=== PATIENT | female | born 1995 | race Caucasian/White ===

== ENCOUNTER 2022-07-30 15:55 | Outpatient (CLI) | payer OTHER, SELFPAY ==
[2022-07-30 18:12] LABS: Cholesterol* 126 mg/dL (90-199)
[2022-07-30 18:13] LABS: Glucose* 94 mg/dL (60-115); HDL Cholesterol* 64 mg/dL (>=50); LDL Cholesterol Calculated 47 mg/dL (<100); Triglycerides* 77 mg/dL (40-149)
== END 2022-07-30 15:56 | disposition home or self-care (01) ==
PROVIDERS: Visit Provider Registered Nurse
DX: Z13.6 Encounter for screening for cardiovascular disorders (principal); Z13.1 Encounter for screening for diabetes mellitus
CPT/HCPCS: 80061; 82947

== ENCOUNTER 2022-09-17 12:34 | Outpatient (CLI) | payer OTHER, SELFPAY ==
--- NOTE | 2022-09-17 13:00 | CRLHL7_ITS ---
For Patients: As a result of the Cures Act, medical imaging exams and procedure reports are released immediately into your electronic medical record. You may view this report before your referring provider. If you have questions, please contact your health care provider. INDICATION: First trimester scan, establish dates. COMPARISON: None. TECHNIQUE: Real-time short-scale imaging of the pelvis was performed. FINDINGS: Sonographic imaging demonstrates a single living intrauterine gestation. The embryo demonstrates a regular cardiac rate measuring 169 beats per minute. The embryo`s crown-rump length measurement of 1.8 cm corresponds to a gestational age of 8 weeks 2 days with a sonographic due date of 04/27/2023. There is a normal-appearing yolk sac. There are no gross abnormalities noted within the embryo at this early state of development. The gestational sac has a normal appearance. There is a 1.6 x 0.6 x 0.5 cm perigestational hemorrhage. The amount of fluid within the sac appears appropriate for gestational age. The cervix is closed. The myometrium appears normal. The ovaries are of normal size. Corpus luteal cyst right ovary. There are no suspicious fluid collections noted in the cul-de-sac. IMPRESSION: Single living intrauterine with sonographic gestational age 8 weeks 2 days and sonographic due date of 04/27/2023. Left superior subchorionic hemorrhage measuring 1.6 x 0.6 x 0.5 cm. Dictated by Iam Peraza MD @ 09/20/2022 11:45:32 AM (Electronically Signed)
== END 2022-09-17 12:35 | disposition home or self-care (01) ==
LOC: US 12:37
PROVIDERS: Visit Provider Registered Nurse
DX: Z34.91 Encounter for supervision of normal pregnancy, unspecified, first trimester (principal); O20.9 Hemorrhage in early pregnancy, unspecified; Z3A.08 8 weeks gestation of pregnancy
CPT/HCPCS: 0353U; 76817; 86592; 86703; 86762; 86787; 86803; 86850; 86900; 86901; 87086; 87340; 87491; 87591

== ENCOUNTER 2022-09-24 13:40 | Outpatient (CLI) | payer OTHER, SELFPAY | END 2022-09-24 13:41 | disposition home or self-care (01) | PROVIDERS: PCP Registered Nurse; Referring Provider Registered Nurse; Visit Provider Registered Nurse | DX: R76.8 Other specified abnormal immunological findings in serum (principal); Z34.90 Encounter for supervision of normal pregnancy, unspecified, unspecified trimester | CPT/HCPCS: 87522 ==

== ENCOUNTER 2022-11-26 14:04 | Outpatient (CLI) | payer OTHER, SELFPAY ==
--- NOTE | 2022-11-26 14:00 | CRLHL7_ITS ---
For Patients: As a result of the Century Cures Act, medical imaging exams and procedure reports are released immediately into your electronic medical record. You may view this report before your referring provider. If you have questions, please contact your health care provider. INDICATION: Leaking fluid, premature rupture of membranes. TECHNIQUE: Ultrasound OB pelvis transabdominal, limited. COMPARISON: Obstetric ultrasound dated 09/18/2019 FINDINGS/IMPRESSION: Limited study evaluating the cervix and amniotic fluid. The cervix appears long and closed, measuring 4.3 cm in length. No significant endocervical fluid is identified. Single deepest pocket of amniotic fluid is measured at 6.0 cm, within normal limits. Fetus is in vertex positioning. Regular heart rate of 150 beats per minute. Placenta is located posteriorly. Dictated by Indu Skelton MD @ 11/26/2022 4:27:20 PM (Electronically Signed)
== END 2022-11-26 14:05 | disposition home or self-care (01) ==
LOC: US 14:04
PROVIDERS: PCP Registered Nurse; Visit Provider Obstetrics & Gynecology
DX: O42.919 Preterm premature rupture of membranes, unspecified as to length of time between rupture and onset of labor, unspecified trimester (principal)
CPT/HCPCS: 76815

== ENCOUNTER 2022-12-10 12:54 | Outpatient (CLI) | payer OTHER, SELFPAY ==
--- NOTE | 2022-12-10 13:00 | CRLHL7_ITS ---
For Patients: As a result of the Century Cures Act, medical imaging exams and procedure reports are released immediately into your electronic medical record. You may view this report before your referring provider. If you have questions, please contact your health care provider. INDICATION: Evaluate anatomy. COMPARISON: none TECHNIQUE: Real time short scale imaging of the fetus was performed as well as color Doppler analysis of the umbilical vessels. FINDINGS: Sonographic imaging demonstrates a single living intrauterine gestation. Fetus demonstrates a regular cardiac rate of 150 beats per minute. Fetus has a variable position. The placenta lies fundal posterior without evidence of placenta previa. The edge of the placenta is located 6.4 cm from the internal cervical os. Amniotic fluid volume appears normal. Single deepest vertical pocket: 3.8 cm. The cervix is closed and measures 3.9 cm in length. The composite ultrasound gestational age is calculated at 20 weeks 2 days with an estimated sonographic due date of 04/27/2023. The estimated weight is 368 grams which lies at the 67th %. The following biometric measurements were obtained: Biparietal diameter: 4.7 cm/20 weeks 0 days 40th% Head circumference: 17.5 cm/20 weeks 0 days 29th% Abdominal circumference: 15.8 cm/20 weeks 6 days 65th% Femur length: 3.4 cm/20 weeks 4 days 52nd% The HC/AC ratio measures: 1.11 range (1.07-1.25) On anatomic survey, there is a normal appearance of the cavum septi pellucidi, cisterna magna and cerebellum. 5 x 3 millimeter choroid plexus cyst. The nose, lips, and facial profile appear normal. The cervical, thoracic and lumbar spine are well visualized and appear normal. There is a normal four-chamber heart view and the left and right ventricular outflow tracts appear normal. The diaphragm and stomach appear normal. The kidneys and bladder also appear normal. There is a normal three-vessel cord and cord insertion site. The four extremities appear normal. IMPRESSION: Concordance of clinical and sonographic dating. 5 x 3 millimeter choroid plexus cyst. Remainder of the anatomic survey normal. Level 2 ultrasound suggested. Dictated by Iam Peraza MD @ 12/10/2022 4:53:57 PM (Electronically Signed)
== END 2022-12-10 12:55 | disposition home or self-care (01) ==
LOC: US 12:55
PROVIDERS: PCP Registered Nurse; Visit Provider Obstetrics & Gynecology
DX: Z34.92 Encounter for supervision of normal pregnancy, unspecified, second trimester (principal); Z3A.20 20 weeks gestation of pregnancy
CPT/HCPCS: 76805; 76817

== ENCOUNTER 2023-02-04 09:55 | Outpatient (CLI) | payer OTHER, SELFPAY | END 2023-02-04 09:56 | disposition home or self-care (01) | LOC: NFLDREF 09:57 | PROVIDERS: Visit Provider Physician Assistant | DX: O26.893 Other specified pregnancy related conditions, third trimester (principal); Z67.91 Unspecified blood type, Rh negative; Z3A.28 28 weeks gestation of pregnancy | CPT/HCPCS: 86592; 86850; 86870; 86880; 86900; 86901; J2791 ==

== ENCOUNTER 2023-02-08 08:15 | Outpatient (CLI) | payer OTHER, SELFPAY | END 2023-02-08 08:16 | disposition home or self-care (01) | LOC: NFLDREF 02-11 06:05 | PROVIDERS: PCP Physician Assistant; Referring Provider Physician Assistant; Visit Provider Physician Assistant | DX: Z34.90 Encounter for supervision of normal pregnancy, unspecified, unspecified trimester (principal) | CPT/HCPCS: 82951; 82952 ==

== ENCOUNTER 2023-03-18 09:32 | Outpatient (CLI) | payer OTHER, SELFPAY | END 2023-03-18 09:33 | disposition home or self-care (01) | PROVIDERS: Visit Provider Obstetrics & Gynecology | DX: Z34.90 Encounter for supervision of normal pregnancy, unspecified, unspecified trimester (principal) | CPT/HCPCS: 86592; 86703; 87340; 87491; 87591 ==

== ENCOUNTER 2023-04-01 09:52 | Outpatient (CLI) | payer OTHER, SELFPAY | END 2023-04-01 09:53 | disposition home or self-care (01) | LOC: NFLDREF 04-06 06:23 | PROVIDERS: Visit Provider Advanced Practice Midwife | DX: Z34.93 Encounter for supervision of normal pregnancy, unspecified, third trimester (principal) | CPT/HCPCS: 87081; 87653 ==

== ENCOUNTER 2023-04-19 16:15 | Inpatient (IN) | payer OTHER, SELFPAY ==
[2023-04-19 16:29] VITALS: BMI 26.9
[2023-04-19 16:47] VITALS: BP 132/78; PULSE 82; RESP 16; TEMP 37.2
--- NOTE | 2023-04-19 18:21 | P.OBO_ITS ---
OB Outpatient HPI History of Present Illness History of Present Illness: 27 year old at 38 weeks, 6 days gestation presents for cervical ripening in anticipation of elective induction of labor tomorrow. Upon presentation, she was noted to be kervin irregularly. She is able to feel these contractions , but they are not strong. Meds Home Medications and Allergies Home Medications Medication Instructions Recorded Confirmed Type loratadine 10 mg tablet (Claritin) 10 mg PO QDAY 07/30/22 04/15/23 History diphenhydramine HCl 25 mg capsule 25 mg PO TID PRN 09/17/22 04/15/23 History (Unisom SleepMinis) docosahexaenoic acid 200 mg mg PO 09/17/22 04/15/23 History capsule ( DHA) Allergies Allergy/AdvReac Type Severity Reaction Status Date / Time cat dander Allergy Verified 04/19/23 18:11 [facility] Surgical History History of tonsillectomy ?Z90.89 - Acquired absence of other organs (ICD-10) [place] teeth extracted ?K08.409 - Partial loss of teeth, unspecified cause, unspecified class (ICD- 10) History of ankle surgery ?Z98.890 - Other specified postprocedural states (ICD-10) Family History Family/Other Thyroid cancer Brain cancer Father High blood pressure Social History What is your current living situation?: I presently have a place to live Problems where you live: no known problems In the past 12 months, utilities in danger of being shut off: no In past 12 months, lack of transportation kept you from medical appts, meetings, work, or getting things needed for daily living: no In the past 12 mos, have been you worried that your food would run out before you had money to buy more?: never true In the past 12 mos, the food you bought just didn't last and you didn't have money to buy more?: never true Smoking Status: Never smoker How often does anyone, including family, friends and others, physically hurt you : never How often does anyone, including family, friends and others, insult or talk down to you: never How often does anyone, including family, friends and others, threaten you with harm: never How often does anyone, including family, friends and others, scream or curse at you: never Little interest or pleasure in doing things: several days Feeling down, depressed, or hopeless: several days History History 2 Elective abortions Para 1 Spontaneous abortions Hx # Term Pregnancies 1 Ectopic pregnancies Hx # Pregnancies Multiple births Number of Living Children 1 Past Pregnancies Del. Date GA/Weeks Outcome Route wt Inf Gender Labor Lgth Anesthesia Location Provider Compli 02/09/21 39 live - full term 6 lb 11 oz Female 15 hrs e pidural [facility] other Delivery Date: 02/09/21 Last Updated by: Elle Cantu ~ [employer], [employer] Short umbilical cord OB - H&P: Exam Physical Exam Vital signs: Temp Pulse Resp BP 98.9 F 82 16 132/78 04/19/23 16:47 04/19/23 16:47 04/19/23 16:47 04/19/23 16:47 Narrative: Physical exam: General: No acute distress Psych: Alert and oriented x3, full affect HEENT: Normocephalic, atraumatic Heart: Regular rate and rhythm, no murmur rub or gallop Lungs: Clear to auscultation bilaterally Abdomen: Soft, nontender, gravid Lower extremities: No edema or erythema Pelvic exam: Cervix 3 cm, 75%,-1 station, mid position, soft. Cephalic, with bulging bag of water noted during contractions. Membranes stripped. tracing: Category 1 Assessment and Plan Assessment and plan (1) : Status: Acute Assessment and Plan: Desires elective induction of labor tomorrow. No with favorable cervix. She is to return tomorrow morning at 6:00 a.m. for Pitocin induction of labor.
== END 2023-04-19 18:10 | disposition home or self-care (01) | DRG 833 ==
PROVIDERS: Admitting Provider Obstetrics & Gynecology; Visit Provider Obstetrics & Gynecology
DX: O47.1 False labor at or after 37 completed weeks of gestation (principal); Z3A.38 38 weeks gestation of pregnancy

== ENCOUNTER 2023-04-20 06:14 | Inpatient (IN) | payer OTHER, SELFPAY ==
[2023-04-20] VITALS (84 sets, daily range): BP systolic 77–136; BP diastolic 46–73; PULSE 74–117; RESP 16–18; TEMP 36.6–37.2; O2SAT 93–120; BMI 26.9
--- NOTE | 2023-04-20 06:57 | P.OBHP_ITS ---
OB - H&P: HPI Labor/Induction History of Present Illness Time Seen by Provider: 07:10 Date Seen: 04/20/23 Chief Complaint: The patient is a 27 year old 2 para 1 at 39 and 0/7 weeks gestation by 8 week ultrasound, who presents for elective induction of labor. course is complicated by depression, anxiety, stress at home (separation from spouse), elevated 1 hour glucose test with normal 3 hour GTT. Complete history and physical exam completed by Dr. Smalls on 04/08/2023. Rosenda is feeling well today, no acute concerns. Endorses regular contractions every several minutes, rated up to 5/10 in severity. She is status post membrane sweeping yesterday by Dr. Cody, where she has had small volume vaginal bleeding/mucus since. No tyler vaginal bleeding or leaking of fluids. Endorses active movement. Denies chest pain, dyspnea, dizziness/lightheadedness, nausea/vomiting, bowel or bladder concerns. Chief complaint: maternity Narrative: Rosenda Delaney is a 27 year old female Specific Issues/Plans : Samuel (ongoing divorce), mother or sister will be her support in L&D H&P done 04/08/[address] Smalls 1. N+V. Zofran rx 2. Rh negative. Rhogam: A 10/30/2022 * RhoGAM given on 10/15/2022 due to vaginal bleeding in early . 3. + Hep C antibody. HCV RNA: Not detected 4. 5 x 3 millimeter choroid plexus cyst on anatomy scan. * Normal [id number]. * Level II US 12/21/22z; posterior placenta without previa, three-vessel cord, MVP 4.3 cm, EFW 41%, AC 45%, normal anatomy. 5. Depression and anxiety. Stress with . Sertraline started 01/14. Declines counseling. Reevaluate at next visit. 02/04/2003: Improved with the sertraline. She and her have . She and her daughter are living with her parents, parents and family very supportive. Counseling referral placed. - 03/18: Divina reports divorce is ongoing, she suspects infidelity in her marriage though her partner denies this. STI screening requested, completed. Mood stable despite stressors at home. She is living with her parents and daughter, feels safe. [x] f/u STI screening 6. Weight loss of 11lbs in 1 week, noted on 01/14. Patient attributed this to stress and minimal eating for a week. Advised 3 meals/day and check weight in one week. F/u in clinic if still losing weight. Stable weight 02/04/2023 7. 1 hour GTT: 159, 3 hour GTT: all normal Tdap: 02/18/2023 Flu: 04/08/2023 Meds Home Medications and Allergies Home Medications Medication Instructions Recorded Confirmed Type loratadine 10 mg tablet (Claritin) 10 mg PO QDAY 07/30/22 04/20/23 History diphenhydramine HCl 25 mg capsule 25 mg PO TID PRN 09/17/22 04/20/23 History ([employer]om SleepMinis) docosahexaenoic acid 200 mg 200 mg PO 09/17/22 04/15/23 History capsule ( DHA) Allergies Allergy/AdvReac Type Severity Reaction Status Date / Time cat dander Allergy Verified 04/19/23 18:11 OB - H&P: Exam Physical Exam: Vital signs: Temp Pulse BP Pulse Ox 98.8 F 99 116/73 99 04/20/23 06:49 04/20/23 06:49 04/20/23 06:49 04/20/23 06:49 Narrative: Physical exam: General: No acute distress Psych: Alert and oriented x3, full affect Heart: Regular rate and rhythm, no murmur rub or gallop Lungs: Clear to auscultation bilaterally Abdomen: Gravid. Otherwise soft and nontender. heart rate: Reactive NST. Baseline of 130 beats per minute, moderate variability, accelerations present, decelerations absent. Cervix: 3.5cm/75/-1 Presentation: Cephalic by exam OB - Problem Based A/P Additional Plan (1) : Status: Acute (2) Anxiety and depression: Status: Acute (3) Unstable lie of fetus: Problem details: Vertex on 04/08/23 Status: Acute Plan Ms. Delaney is a 27-year-old admitted at 39 weeks gestation for elective atif ction of labor. course is complicated by depression, anxiety, stress at home (ongoing separation from spouse), elevated 1 hour glucose test and history of variable presentation. She presented for cervical ripening yesterday, at which time she was kervin irregularly. Cervix was found to be 3/75/-1, membrane stripping performed and recommended to return this morning. She notes increasingly regular painful contractions since that time and small volume spotting/mucus. No tyler vaginal bleeding or leaking of fluids. Endorses active movement. Cervix is 3.5 cm, 75% effaced and minus once today. Admit to labor and delivery for IOL with pitocin. - Start IOL with pitocin titration pending FHR and toco data - Plan reassessment in about 4 hours for possible AROM. Patient desires epidural, where she may proceed with epidural prior to AROM depending on cervical change/plan at next exam. - Blood type B negative, planned cord blood at time of delivery - GBS negative - History of variable presentation, cephalic on exam today and for the last several weeks - Patient's mother and sister are her support people today - EFW 3000g by Lupe
[2023-04-20] MEDS: LACTATED RINGERS 1000 ML 1,000 ML 999 ML IV (08:58)
[2023-04-20] MEDS: ONDANSETRON 2 MG/ML inj 4 MG IV ×2 (09:03→13:34)
[2023-04-20] MEDS: LACTATED RINGERS 1000 ML 1,000 ML 1200 ML IV (09:32)
[2023-04-20] MEDS: LIDOCAINE 2% (PF) 5 ML VIAL EPIDURAL (09:41)
[2023-04-20] MEDS: ROPIVACAINE 0.2% 100 ml 100 ML 12 MG EPIDURAL (09:42)
--- NOTE | 2023-04-20 10:55 | PM.ANBPRC ---
PFSH PFS Surgical History History of tonsillectomy ?Z90.89 - Acquired absence of other organs (ICD-10) [place] teeth extracted ?K08.409 - Partial loss of teeth, unspecified cause, unspecified class (ICD-10) History of ankle surgery ?Z98.890 - Other specified postprocedural states (ICD-10) Family History Family/Other Thyroid cancer Brain cancer Father High blood pressure Social History What is your current living situation?: I presently have a place to live Problems where you live: no known problems In the past 12 months, utilities in danger of being shut off: no In past 12 months, lack of transportation kept you from medical appts, meetings, work, or getting things needed for daily living: no In the past 12 mos, have been you worried that your food would run out before you had money to buy more?: never true In the past 12 mos, the food you bought just didn't last and you didn't have money to buy more?: never true Smoking Status: Never smoker How often does anyone, including family, friends and others, physically hurt you: never How often does anyone, including family, friends and others, insult or talk down to you: never How often does anyone, including family, friends and others, threaten you with harm: never How often does anyone, including family, friends and others, scream or curse at you: never Little interest or pleasure in doing things: several days Feeling down, depressed, or hopeless: several days Meds Home Medications and Allergies Home Medications Medication Instructions Recorded Confirmed Type loratadine 10 mg tablet (Claritin) 10 mg PO QDAY 07/30/22 04/20/23 History diphenhydramine HCl 25 mg capsule 25 mg PO TID PRN 09/17/22 04/20/23 History (Un[employer]om SleepMinis) docosahexaenoic acid 200 mg 200 mg PO 09/17/22 04/15/23 History capsule ( DHA) Allergies Allergy/AdvReac Type Severity Reaction Status Date / Time cat dander Allergy Verified 04/19/23 18:11 Results Vital Signs Vital Signs: Last Vital Signs Temp 97.8 F 04/20/23 09:52 Pulse 89 04/20/23 10:44 Resp 16 04/20/23 09:52 BP 102/67 04/20/23 10:44 Pulse Ox 100 04/20/23 09:40 Weight: 82.826 kg Height: 175.26 cm Anesthesia Procedures Epidural Insertion Patient Location: OB Start Time: :15 Stop Time: 09:45 Start Date: 04/20/23 Stop Date: 04/20/23 Reason for Block: procedure for pain Patient Position: sitting Performed By: Charles Mckeon Preanesthetic Checklist: IV checked, risks and benefits discussed, monitors and equipment checked, pre-op evaluation, timeout performed and anesthesia consent Prep: chlorhexidine gluconate Monitoring: blood pressure monitoring, continuous pulse oximetry and heart rate Approach: midline Vertebral Space: lumbar (1-5) Epidural Technique: ALEIDA saline Needle Type: Tuohy needle Injection Technique: continuous catheter Needle gauge: 17 Needle Length (cm): 10 cm Needle Insertion Depth (cm): 6 Catheter Gauge: 19 Catheter Type: multi-orifice Catheter at skin depth (cm): 12 Test Dose Result: negative and lidocaine 1.5% with epinephrine 1 to 200,000
[2023-04-20] MEDS: OXYTOCIN 30 unit/500 ML in NS 30 UNIT/500 ML BAG IVPB (11:23)
[2023-04-20] MEDS: LACTATED RINGERS 1000 ML 1,000 ML 125 ML IV (11:25)
[2023-04-20] MEDS: PHENYLEPHRINE 100 MCG/ML SYRINGE IVP ×4 (12:40→13:58)
--- NOTE | 2023-04-20 13:43 | PM.OBPNL ---
Subjective Time Seen by Provider: 13:15 Date Seen: 04/20/23 Narrative: Ms. Delaney is a 27yo ongoing elective IOL at 39w0d GA. course complicated by anxiety/depression, difficulty at home and elevated 1 hour GTT. Rosenda notes increasing pain with pitocin, on 1mu/min. She is s/p epidural. She has baseline low normal blood pressures, where she did have symptomatic hypotension following epidural placement and is s/p phenylephrine x2. She notes nausea seems to get worse with contractions. No chest pain, dyspnea, dizziness/lightheadedness. Interested in continuing IOL with AROM, risks/benefits reviewed. Objective Exam: Physical exam: General: No acute distress. Wash cloth on forehead secondary to nausea. Abdomen: Gravid. Otherwise soft and nontender. heart rate: Category 1 FHR tracing. Baseline of 130 beats per minute, moderate variability, accelerations present, decelerations absent. Cervix: 4/90/-1, AROM completed. Vital Signs: Last Vital Signs Temp 98.9 F 04/20/23 12:20 Pulse 100 04/20/23 13:39 Resp 16 04/20/23 12:20 BP 99/56 L 04/20/23 13:39 Pulse Ox 100 04/20/23 09:40 Plan Plan: Ms. Delaney is a 27yo ongoing elective IOL. Cervix now 4/90/-1, s/p AROM for return of clear fluid. She has had intermittent symptomatic hypotension since epidural placement, s/p phenylephrine x2. Recommend repeat IVF bolus as needed and zofran PRN. She does seem to have increasing nausea with contractions and cervical exam, where I question if part of this may be vasovagal response secondary to cervical manipulation. Reassuring maternal and condition. Anticipate next exam in 4 hours, sooner as clinically indicated.
[2023-04-20] MEDS: ePHEDrine sulfate 5 MG/ML inj 10 MG IVP (14:13)
[2023-04-20] MEDS: LACTATED RINGERS 1000 ML 1,000 ML 500 ML IV (14:23)
--- NOTE | 2023-04-20 16:06 | W.PM.VAGDEL1 ---
Procedure Delivery date: 04/20/23 Procedure Done: Global Events: No Care Intrapartal Events: Labor Induction (Elective) Delivery monitor: external FHT and external uterine Route of delivery: Episiotomy description: None Laceration description: None Estimated blood loss (mL): 450 Complications: None Narrative: Ms. Delaney is a 27yo at 39w0d GA by 8 week US. She was admitted to the hospital for elective IOL.? heart tones on admission were category 1. Her was otherwise complicated by anxiety, depression and elevated 1 hour glucose tolerance test (normal 3 hour) and Rh negative status. Her labor was induced with pitocin and epidural were utilized for pain management. Status of bag of nguyễn: AROM performed with return of clear fluid. heart tones during active labor were category 1 and 2. She was noted to have a deep variable deceleration at 1303, where she was checked and found to be complete and +2. I was notified of imminent delivery and presented to the bedside. My exam confirmed 10/100/+2 and direct OA position. Recurrent deep variable decelerations were noted, where we immediately began pushing. She had a at 1514. Baby delivered OA, resituted YAMILKA and the anterior and posterior shoulders delivered without difficulty. Loose body cord was noted, delivered through. The cord was clamped and cut after delayed cord clamping. Active management of the third stage was initiated with pitocin and gentle traction on the umbilical cord, and the placenta delivered spontaneous and intact at 1521. Cord gases sent: no Cord blood sent for infant ABO: yes Perineum and vagina were inspected, and the following lacerations were noted: none, intact. No repair was required.Excellent hemostasis was noted, with total EBL of 450cc. All counts were correct. Mother and infant in stable condition following the .? [place] Infant Gender: Male presentation: vertex Placental Delivery Description: Spontaneous Cord Description: 3 Vessels, Loose and Around Body x1
[2023-04-20] MEDS: ACETAMINOPHEN 500 MG TABLET 1000 MG PO (23:23)
[2023-04-21 03:24] VITALS: BP 94/59; PULSE 96; RESP 16; TEMP 36.7
[2023-04-21 06:33] LABS: Hemoglobin* 9.5 gm/dL (12.0-16.0)
[2023-04-21] MEDS: ACETAMINOPHEN 500 MG TABLET 1000 MG PO (07:58)
[2023-04-21 08:00] VITALS: BP 96/62; PULSE 85; RESP 16; TEMP 36.7; O2SAT 99
--- NOTE | 2023-04-21 08:17 | PM.OBDSVD1 ---
DS: Providers Provider Time Seen by Provider: 08:18 Date Seen: 04/21/23 Date of admission: 04/20/23 06:14 Primary care physician: Not a Local Provider Admitting Clinician: Zahira Elder MD Attending Physician on discharge: Zahira Elder MD Date of Discharge: 04/21/23 DS: Diagnosis Discharge Diagnosis (1) NVD (normal vaginal delivery): Status: Acute (2) examination following vaginal delivery: Status: Acute (3) Lactating mother: Status: Acute (4) Anxiety and depression: Status: Acute Exam Narrative: Exam Narrative: VSS, afebrile GENERAL APPEARANCE: ?normal affect, alert, no distress MOOD: ?appropriate HEENT: normocephalic, neck supple, full ROM CHEST: ?Symmetrical chest wall movement. ?Normal respiratory effort. ?Clear to auscultation HEART: ?regular rate and rhythm ABDOMEN: ?soft, non-tender. Uterine fundus is firm, at Umbilicus, Midline and is appropriate for the stage of recovery. ?Bowel sounds present. PERINEUM: ?mild edema of the perineum, there is a no lacerations EXTREMITIES: ?normal and no edema Const: Vital Signs, click to edit/add: Vital Signs - 24 hr 04/20/23 09:15 04/20/23 09:20 04/20/23 09:25 Temperature Pulse Rate Pulse Rate [Blood Pressure Cuff] Respiratory Rate Blood Pressure Blood Pressure [Le ft Arm] Pulse Oximetry 97 100 100 Oxygen Delivery Me thod 04/20/23 09:27 04/20/23 09:30 04/20/23 09:35 Temperature Pulse Rate Pulse Rate [Blood Pressure Cuff] Respiratory Rate Blood Pressure Blood Pressure [Le ft Arm] Pulse Oximetry 93 100 100 Oxygen Delivery Me thod 04/20/23 09:39 04/20/23 09:40 04/20/23 09:41 Temperature Pulse Rate 82 102 H Pulse Rate [Blood Pressure Cuff] Respiratory Rate Blood Pressure 114/69 125/64 Blood Pressure [Le ft Arm] Pulse Oximetry 100 Oxygen Delivery Me thod 04/20/23 09:43 04/20/23 09:45 04/20/23 09:47 Temperature Pulse Rate 84 80 88 Pulse Rate [Blood Pressure Cuff] Respiratory Rate Blood Pressure 110/56 L 106/59 L 103/61 Blood Pressure [Le ft Arm] Pulse [facility]xim[facility] 04/[facility] 09:52 04/20/23 09:53 04/20/23 09:58 Temperature 97.8 F Pulse Rate 87 82 Pulse Rate [Blood Pressure Cuff] Respiratory Rate 16 Blood Pressure 105/59 L 113/62 Blood Pressure [Le ft Arm] Pulse Oximetry Oxygen Delivery Nm thod 04/20/23 10:15 04/20/23 10:31 04/20/23 10:44 Temperature Pulse Rate 85 86 89 Pulse Rate [Blood Pressure Cuff] Respiratory Rate Blood Pressure 114/65 98/53 L 102/67 Blood Pressure [Le ft Arm] Pulse Oximetry Oxygen Delivery Nm thod 04/20/23 11:00 04/20/23 11:14 04/20/23 11:29 Temperature Pulse Rate 75 81 74 Pulse Rate [Blood Pressure Cuff] Respiratory Rate Blood Pressure 99/54 L 95/52 L 95/50 L Blood Pressure [Le ft Arm] Pulse Oximetry Oxygen Delivery Nm thod 04/20/23 11:44 04/20/23 11:59 04/20/23 12:15 Temperature Pulse Rate 83 78 78 Pulse Rate [Blood Pressure Cuff] Respiratory Rate Blood Pressure 102/55 L 102/58 L 136/56 L Blood Pressure [Le ft Arm] Pulse Oximetry Oxygen Delivery Nm thod 04/20/23 12:20 04/20/23 12:30 04/20/23 12:32 Temperature 98.9 F Pulse Rate 104 H 81 Pulse Rate [Blood Pressure Cuff] Respiratory Rate 16 Blood Pressure 78/46 L 79/49 L Blood Pressure [Le ft Arm] Pulse Oximetry Oxygen Delivery Nm thod 04/20/23 12:38 04/20/23 12:49 04/20/23 12:55 Temperature Pulse Rate 99 90 75 Pulse Rate [Blood Pressure Cuff] Respiratory Rate Blood Pressure 77/50 L 86/52 L 98/56 L Blood Pressure [Le ft Arm] Pulse Oximetry Oxygen Delivery Nm thod 04/20/23 12:59 04/20/23 13:03 04/20/23 13:07 Temperature Pulse Rate 86 78 81 Pulse Rate [Blood Pressure Cuff] Respiratory Rate Blood Pressure 97/58 L 98/57 L 95/56 L Blood Pressure [Le ft Arm] Pulse Oximetry Oxygen Delivery Nm thod 04/20/23 13:11 04/20/23 13:15 04/20/23 13:19 Temperature Pulse Rate 87 100 85 Pulse Rate [Blood Pressure Cuff] Respiratory Rate Blood Pressure 96/58 L 96/54 L 95/53 L Blood Pressure [Le ft Arm] Pulse Oximetry Oxygen Delivery Nm thod 04/20/23 13:23 04/20/23 13:27 04/20/23 13:31 Temperature Pulse Rate 99 102 H 81 Pulse Rate [Blood Pressure Cuff] Respiratory Rate Blood Pressure 95/53 L 91/52 L 99/56 L Blood Pressure [Le ft Arm] Pulse Oximetry Oxygen Delivery Nm thod 04/20/23 13:35 04/20/23 13:39 04/20/23 13:44 Temperature Pulse Rate 85 100 86 Pulse Rate [Blood Pressure Cuff] Respiratory Rate Blood Pressure 97/57 L 99/56 L 90/51 L Blood Pressure [Le ft Arm] Pulse Oximetry [facility] 04/[facility]/23 13:47 04/20/23 13:49 04/20/23 13:51 Temperature 98.9 F Pulse Rate 87 85 Pulse Rate [Blood Pressure Cuff] Respiratory Rate 17 Blood Pressure 93/53 L 86/48 L Blood Pressure [Le ft Arm] Pulse Oximetry [facility] 04/20/23 13:55 04/20/23 13:59 04/20/23 14:03 Temperature Pulse Rate 84 84 88 Pulse Rate [Blood Pressure Cuff] Respiratory Rate Blood Pressure 88/51 L 90/51 L 93/53 L Blood Pressure [Le ft Arm] Pulse Oximetry [facility] 04/20/23 14:07 04/20/23 14:10 04/20/23 14:11 Temperature Pulse Rate 83 93 Pulse Rate [Blood Pressure Cuff] Respiratory Rate Blood Pressure 85/49 L 87/50 L Blood Pressure [Le ft Arm] Pulse Oximetry 100 Oxygen Delivery Nm thod 04/20/23 14:12 04/20/23 14:15 04/20/23 14:19 Temperature Pulse Rate 87 94 97 Pulse Rate [Blood Pressure Cuff] Respiratory Rate Blood Pressure 91/54 L 97/54 L 94/50 L Blood Pressure [Le ft Arm] Pulse Oximetry 100 Oxygen Delivery Nm thod 04/20/23 14:20 04/20/23 14:23 04/20/23 14:25 Temperature Pulse Rate 103 H Pulse Rate [Blood Pressure Cuff] Respiratory Rate Blood Pressure 95/46 L Blood Pressure [Le ft Arm] Pulse Oximetry 100 100 Oxygen Delivery Me thod 04/20/23 14:27 04/20/23 14:30 04/20/23 14:31 Temperature Pulse Rate 106 H 104 H Pulse Rate [Blood Pressure Cuff] Respiratory Rate Blood Pressure 89/54 L 87/49 L Blood Pressure [Le ft Arm] Pulse Oximetry 100 Oxygen Delivery Me thod 04/20/23 14:35 04/20/23 14:39 04/20/23 14:40 Temperature Pulse Rate 107 H 113 H Pulse Rate [Blood Pressure Cuff] Respiratory Rate Blood Pressure 89/53 L 91/53 L Blood Pressure [Le ft Arm] Pulse Oximetry 100 100 Oxygen Delivery Nm thod 04/20/23 14:43 04/20/23 14:45 04/20/23 14:47 Temperature Pulse Rate 108 H 104 H Pulse Rate [Blood Pressure Cuff] Respiratory Rate Blood Pressure 89/50 L 92/53 L Blood Pressure [Le ft Arm] Pulse Oximetry 100 Oxygen Delivery Nm thod 04/20/23 14:50 04/20/23 14:51 04/20/23 14:55 Temperature Pulse Rate 101 H 101 H Pulse Rate [Blood Pressure Cuff] Respiratory Rate Blood Pressure 93/50 L 91/53 L Blood Pressure [Le ft Arm] Pulse Oximetry 100 100 Oxygen Delivery Nm thod 04/20/23 15:00 04/20/23 15:18 04/20/23 15:19 Temperature 98.8 F Pulse Rate 114 H Pulse Rate [Blood Pressure Cuff] Respiratory Rate 18 Blood Pressure 116/58 L Blood Pressure [Le ft Arm] Pulse Oximetry 100 Oxygen Delivery Nm thod 04/20/23 15:20 04/20/23 15:34 04/20/23 15:49 Temperature 98.6 F Pulse Rate 117 H 99 Pulse Rate [Blood Pressure Cuff] Respiratory Rate Blood Pressure 114/56 L 107/59 L Blood Pressure [Le ft Arm] Pulse Oximetry Oxygen Delivery Nm thod 04/20/23 16:04 04/20/23 16:19 04/20/23 16:34 Temperature Pulse Rate 97 95 94 Pulse Rate [Blood Pressure Cuff] Respiratory Rate Blood Pressure 110/59 L 90/58 L 97/58 L Blood Pressure [Le ft Arm] Pulse Oximetry Oxygen Delivery Nm thod 04/20/23 16:49 04/20/23 17:04 04/20/23 17:19 Temperature Pulse Rate 90 93 93 Pulse Rate [Blood Pressure Cuff] Respiratory Rate Blood Pressure 101/56 L 103/56 L 104/56 L Blood Pressure [Le ft Arm] Pulse Oximetry Oxygen Delivery Me thod 04/20/23 17:19 04/20/23 20:11 04/20/23 23:29 Temperature 98.8 F 98.4 F 98.5 F Pulse Rate Pulse Rate [Blood Pressure Cuff] 87 Respiratory Rate 16 16 Blood Pressure Blood Pressure [Le ft Arm] 106/67 97/60 Pulse Oximetry 120 H Oxygen Delivery Me thod 04/21/23 03:24 Temperature 98.0 F Pulse Rate Pulse Rate [Blood Pressure Cuff] 96 Respiratory Rate 16 Blood Pressure Blood Pressure [Le ft Arm] 94/59 L Pulse Oximetry Oxygen Delivery Me thod Room Air Documenting provider has reviewed patient's vital signs: yes OB - DS: Summary Hospital Course Hospital Course: Rosenda is a 27 y.o. G 2 P 2 who was admitted to [facility] for [facility]. ?She had an uncomplicated NVD The patient feels well. ?The pain is well controlled with current medications. ?She has no new complaints. ?She is breast feeding and reports things are going well.? the patient has done well.? Vitals have been stable.? She has remained afebrile.? Has a good appetite, is tolerating a general diet. ?She is voiding without difficulty.? She is passing gas and has not had a bowel movement.? She is ambulating and denies any dizziness.? Has Small amount of rubra lochia. She is not plan prevention as she is currently not with the FOB. Problems: none plan: Discharge home with baby. Follow up in 2 weeks and 6 weeks. , may follow up with if needed Acute anemia, continue iron supplementation for 6 weeks Peripartum Data Infant delivery method: Vaginal Laceration description: None complications: none Infant Gender: Male Discharge Plan: Home Status at Discharge Functional status at discharge: independent ambulation Overall status at discharge: patient is progressing back to baseline Time Spent with Patient Time attestation: Total time spent providing and/or coordinating discharge services: Time spent: Less than 30 minutes Discharge Plan Discharge Disposition: Home, Self-Care Date of Admission: 04/20/23 06:14 Attending Provider on Discharge: Nolvia Montano Primary Care Provider: Provider,Not a Local Condition: Stable Anticipated Discharge Date/Time: 04/21/23 17:00 Discharge Medications: New docusate sodium 100 mg Capsule 100 mg PO BID PRNQty: 100 0RF Rx Instructions: Take 1 cap 1-2 times a day as needed for constipation ibuprofen 600 mg Tablet 600 mg PO Q6H PRNQty: 60 0RF ferrous sulfate 325 mg (65 mg iron) tablet 325 mg PO Q OTHER DAY Qty: 21 0RF Continued loratadine [Claritin] 10 mg tablet 10 mg PO QDAY sertraline [Zoloft] 50 mg tablet 50 mg PO QDAY Qty: 90 3RF DHA 200 mg capsule 200 mg PO DAILY Discontinued diphenhydramine HCl [Unisom SleepMinis] 25 mg capsule 25 mg PO TID PRN ondansetron 4 mg tablet,disintegrating 4 mg PO Q6H PRN (Reason: nausea and vomiting) Qty: 30 2RF Discharge Orders: Discharge Order (Routine); Ordered 04/21/23 Ordered By: Nolvia Montano Patient Education: OB Over the Counter Medication Information, OB Vaginal/Breast Feeding Additional Instructions: Follow up in 2 weeks and 6 weeks. Script sent in for an iron supplement, as yours is a little low. Take every other day for 6 weeks. Activity Level: Activity as Tolerated Discharge Diet: Regular Follow Up Appointments: Provider,Not a Local [Primary Care Provider] - Forms: MyHealth Info Instructions
[2023-04-21] MEDS: DOCUSATE SODIUM 100 MG CAPSULE PO (09:20)
[2023-04-21] MEDS: IBUPROFEN 600 MG TABLET PO (12:11)
[2023-04-21 12:12] VITALS: BP 99/68; PULSE 88; RESP 16; TEMP 36.8; O2SAT 100
== END 2023-04-21 16:50 | disposition home or self-care (01) | DRG 807 ==
PROVIDERS: Admitting Provider Obstetrics & Gynecology; Visit Provider Obstetrics & Gynecology
DX: O99.344 Other mental disorders complicating childbirth (principal); Z37.0 Single live birth; F32.A Depression, unspecified; F41.9 Anxiety disorder, unspecified; Z73.3 Stress, not elsewhere classified; Z63.0 Problems in relationship with spouse or partner; I95.89 Other hypotension; O26.893 Other specified pregnancy related conditions, third trimester; Z67.91 Unspecified blood type, Rh negative; Z3A.39 39 weeks gestation of pregnancy
CPT/HCPCS: 01967; 36415; 85018; 85025; 86850; 86900; 86901; A9270; J2371; J2405; J2795; J7120

== ENCOUNTER 2023-04-25 09:42 | Inpatient (IN) | payer OTHER, SELFPAY ==
[2023-04-25] VITALS (20 sets, daily range): BP systolic 85–125; BP diastolic 44–77; PULSE 75–124; RESP 16–18; TEMP 36.6–39.5; O2SAT 97–99; BMI 26.6
[2023-04-25 10:08] LABS: Appearance Urine Clear (Clear); Bilirubin Urine Negative (Negative); Blood Urine Trace-intact (Negative); Color Urine Yellow (Yellow); Glucose Urine Negative (Negative); Ketones Urine 1+ (Negative); Leukocyte Esterase Urine Negative (Negative); Nitrite Urine Negative (Negative); Protein Urine Negative (Negative)
--- NOTE | 2023-04-25 10:08 | ED.GENADULT ---
HPI - General Adult General Chief complaint: Post OB/Post- Complication Stated complaint: 5 days fever, pain Time Seen by Provider: 04/25/23 10:08 History of Present Illness HPI narrative: Pt c/o fever since last night around 11 pm. 5 days post- after vaginal delivery. Having some lower cramping in Abdomen. Had a catheter less than 24 hours. Has slight headache . Denies complications with delivery. 27-year-old young woman presenting to the emergency department with concern of abdominal cramping and fever since last night. Five days vaginal delivery. Had pretty bad headache that is not orthostatic that is admittedly little bit improved. Did have some shakes last night that improved after she seem to pass something indicating uterine/vaginal area but did not ultimately have anything come out. Lochia has continued to light and. she has not had increased vaginal bleeding. No ill exposures. Is breast feeding. This is going well. No excessive pain or swelling reported. No rashes. Had been a few days without a bowel movement but had a good bowel movement finally yesterday. Would not consider herself constipated no dysuria noted. Pain is markedly exacerbated when goes to stand. [place] like this was an issue as well as if things were shifting downward. Related Data Home Medications Medication Instructions Recorded Confirmed loratadine 10 mg tablet (Claritin) 10 mg PO QDAY 07/30/22 04/20/23 docosahexaenoic acid 200 mg 200 mg PO DAILY 09/17/22 04/20/23 capsule ( DHA) Previous Rx's Medication Instructions Recorded sertraline 50 mg tablet (Zoloft) 50 mg PO QDAY #90 tabs 03/04/23 docusate sodium 100 mg capsule 100 mg PO BID PRN #100 caps 04/21/23 ferrous sulfate 325 mg (65 mg 325 mg PO Q OTHER DAY #21 tabs 04/21/23 iron) tablet ibuprofen 600 mg tablet 600 mg PO Q6H PRN #60 tabs 04/21/23 Allergies Allergy/AdvReac Type Severity Reaction Status Date / Time cat dander Allergy Verified 04/19/23 18:11 Review of Systems Status of ROS: Reports: 6 or more systems reviewed and unremarkable except as noted in History and below [facility] Medical History (Updated 04/26/23 @ 09:24 by Nalini Cody MD) Unstable lie of fetus ?O32.0XX0 - Maternal care for unstable lie, not applicable or unspecified (ICD-10) Routine screening for STI (sexually transmitted infection) ?Z11.3 - Encounter for screening for infections with a predominantly sexual mode of transmission (ICD-10) Surgical History History of tonsillectomy ?Z90.89 - Acquired absence of other organs (ICD-10) [place] teeth extracted ?K08.409 - Partial loss of teeth, unspecified cause, unspecified class (ICD-10) History of ankle surgery ?Z98.890 - Other specified postprocedural states (ICD-10) Family History Family/Other Thyroid cancer Brain cancer Father High blood pressure Social History What is your current living situation?: I presently have a place to live Problems where you live: no known problems In the past 12 months, utilities in danger of being shut off: no In past 12 months, lack of transportation kept you from medical appts, meetings, work, or getting things needed for daily living: no In the past 12 mos, have been you worried that your food would run out before you had money to buy more?: never true In the past 12 mos, the food you bought just didn't last and you didn't have money to buy more?: never true Highest level of school completed/degree received: Associate degree: academic program Smoking Status: Never smoker Do you use any of these nicotine containing products: None Second hand tobacco smoke exposure: No How often do you have a drink containing alcohol: monthly or less How often do you have six or more drinks on one occasion: Never AUDIT-C Alcohol total score: 1 Non-prescribed substance use: denies use Caffeine: No How often does anyone, including family, friends and others, physically hurt you: never How often does anyone, including family, friends and others, insult or talk down to you: never How often does anyone, including family, friends and others, threaten you with harm: never How often does anyone, including family, friends and others, scream or curse at you: never Little interest or pleasure in doing things: several days Feeling down, depressed, or hopeless: several days service: No Exam Narrative: Exam Narrative: Pleasant. Sounds a little congested in the nasopharynx. Lungs appear to be clear. Oropharynx is moist without erythema. No cervical lymphadenopathy. Lungs are clear after thought I initially heard couple squeaks. Heart is tachycardic in a regular rhythm. Skin with some tattoos on the left back. Otherwise feels quite warm without rash. Abdomen with normoactive bowel sounds. Is no masses. Evidence of piercing around the umbilicus. Lower abdomen/suprapubic area generally mildly tender without peritoneal signs. Const: Vital Signs, click to edit/add: Vital Signs - 24 hr 04/25/23 09:52 04/25/23 10:53 04/25/23 11:16 Temperature 100.1 F H 100.1 F H Pulse Rate [Left P ulse Oximeter] 113 H 93 Respiratory Rate 16 16 Blood Pressure [Ri ght Upper Arm] 101/62 Pulse Oximetry 99 99 Oxygen Delivery Me thod Room Air Documenting provider has reviewed patient's vital signs: yes Course Vital Signs Vital signs: Initial Vital Signs Temperature 100.1 F H 04/25/23 09:52 Temperature Source Temporal Artery Scan 04/25/23 09:52 Pulse Rate 113 H 04/25/23 09:52 Pulse Rhythm Regular 04/25/23 09:52 Respiratory Rate 16 04/25/23 09:52 Blood Pressure 101/62 04/25/23 09:52 Blood Pressure Mean 75 04/25/23 09:52 Blood Pressure Position Sitting 04/25/23 09:52 Pulse Oximetry 99 04/25/23 09:52 Oxygen Delivery Method Room Air 04/25/23 09:52 Vital Signs Temperature 100.1 F H 04/25/23 09:52 Pulse Rate 113 H 04/25/23 09:52 Respiratory Rate 16 04/25/23 09:52 Blood Pressure 101/62 04/25/23 09:52 Pulse Oximetry 99 04/25/23 09:52 Oxygen Delivery Method Room Air 04/25/23 09:52 Temperature 97.7 F 04/26/23 07:00 Pulse Rate 73 04/26/23 07:00 Respiratory Rate 16 04/26/23 07:00 Blood Pressure 99/60 04/26/23 07:00 Pulse Oximetry 97 04/26/23 07:00 Oxygen Delivery Method Room Air 04/26/23 07:00 Medications Administered Medications: Generic Name Dose Route Start Last Admin Trade Name Enedina PRN Reason Stop Dose Admin Acetaminophen 650 mg 04/25/23 22:00 04/26/23 10:53 Acetaminophen 325 Mg Tablet PO 650 mg Q6H AFTAB Administration Ferrous Sulfate 650 mg 04/26/23 09:30 04/26/23 10:53 Ferrous Sulfate 325 Mg Tablet PO 650 mg Q48H AFTAB Administration Piperacillin Sod/Tazobactam 100 mls @ 200 mls/hr 04/25/23 19:00 04/26/23 07:15 Sod 3.375 gm/ Sodium Chloride IVPB Infused Q6H AFTAB Infusion Ibuprofen 600 mg 04/25/23 18:00 04/26/23 06:36 Ibuprofen 600 Mg Tablet PO 600 mg Q6H AFTAB Administration Discontinued Medications Generic Name Dose Route Start Last Admin Trade Name Enedina PRN Reason Stop Dose Admin Acetaminophen 1,000 mg 04/25/23 10:20 04/25/23 10:53 Acetaminophen 500 Mg Tablet PO 04/25/23 10:21 1,000 mg ONCE ONE Administration Acetaminophen 650 mg 04/25/23 13:30 04/25/23 16:02 Acetaminophen 325 Mg Tablet PO 650 mg Q4H PRN Administration minor pain Hydroxyzine Pamoate 25 mg 04/25/23 13:41 04/25/23 15:17 Hydroxyzine Pamoate 25 Mg Capsule PO 04/25/23 13:42 Not Given ONCE ONE Sodium Chloride 1,000 mls @ 1,000 mls/hr 04/25/23 10:20 04/25/23 12:30 0.9 % Sodium Chloride 1000 Ml IV 04/25/23 11:19 Infused .Q1H ONE Infusion Piperacillin Sod/Tazobactam 100 mls @ 200 mls/hr 04/25/23 12:01 04/25/23 13:40 Sod 3.375 gm/ Sodium Chloride IVPB 04/25/23 12:02 Infused ONCE ONE Infusion Medical Decision Making [facility] Narrative Medical decision making narrative: Could be viral fever process like COVID or influenza on top of or amplifying otherwise expected pain. May have endometritis though usually expect more pain on physical exam. Does not seem to have symptoms of urinary tract infection but will check. Possibly retained products though is not bleeding really. Initiating IV fluids. She will accept acetaminophen at least. CBC of 13.3. Rather elevated CRP. Requested an ultrasound of the pelvis looking for retained product. Discussion with export specialist believes that there is likely retained product still. They also discussed with radiologist where complicating issue is maybe hard to know how much of this is just hypervascularity . Discussed this case also with OBGYN on-call. Concern is still for retained product and secondary infection anticipating surgical intervention shortly. Discussed antibiotic options with OBGYN. IV clindamycin not available at this time. Ordered for Zosyn. I would consider Ms. Delaney a good candidate for trial of anesthesia. Lab Data Lab results reviewed: Yes I reviewed the patient's lab results Labs: Lab Results 04/25/23 04/25/23 Range/Units 10:08 10:40 WBC 13.27 H (4.50-11.00) K/uL RBC 3.23 L (4.00-5.20) m/uL Hgb 10.3 L (12.0-16.0) gm/dL Hct 30.0 L (33.0-51.0) % MCV 93 (80-100) fL MCH 32 (26-34) pg MCHC 34 (32-36) gm/dL RDW Coeff of Kamlesh 12.3 (11.5-15.5) % Plt Count 200 (140-440) K/uL Neut % (Auto) 80.3 H (42.0-72.0) % Lymph % (Auto) 8.1 L (20-44) % [place] % (Auto) 10.6 (0.0-11.0) % Eos % (Auto) 0.3 (0.0-7.0) % Baso % (Auto) 0.2 (0.0-3.0) % Neut # (Auto) 10.70 H (1.7-7.0) K/uL Lymph # (Auto) 1.10 (0.90-2.90) K/uL [place] # (Auto) 1.40 H (0.00-0.90) K/UL Eos # (Auto) 0.00 (0.00-0.50) K/uL Baso # (Auto) 0.00 (0.00-0.30) K/uL Abs Immat Gran (auto) 0.10 (0.00-0.30) K/uL Imm/Tot Granulo (auto) 0.5 % Sodium 135 (135-149) mmol/L Potassium 3.5 L (3.6-5.1) mmol/L Chloride 105 (96-114) mmol/L Carbon Dioxide 21 (20-32) mmol/L Anion Gap 9 (7-15) mEq/L BUN 7 (5-24) mg/dL Creatinine 0.7 (0.5-1.5) mg/dL Estimated Creat Clear 128.39 Estimated GFR 123 ml/min Glucose 87 (60-115) mg/dL Calcium 7.8 L (8.4-10.6) mg/dL C-Reactive Protein 12.5 H (0.5-1.0) mg/dL Urine Color Yellow (Yellow) Urine Appearance Clear (Clear) Urine pH 7.0 (5.0-8.5) Ur Specific [place] 1.010 (1.000-1.030) Urine Protein Negative (Negative) Urine Glucose (UA) Negative (Negative) Urine Ketones 1+ A (Negative) Urine Blood Trace-intact A (Negative) Urine Nitrite Negative (Negative) Urine Bilirubin Negative (Negative) Urine Urobilinogen 4.0 A (0.2-1.0) Ur Leukocyte Esterase Negative (Negative) Urine RBC 2-5 A (0-2) Urine WBC 2-5 (0-5) Urine WBC Clumps None (None) Ur Squamous Epith Cells None (None-Few) Urine Bacteria None (None) SARS-CoV-2 (PCR) Negative SARS-CoV-2 (Negative) Influenza Type A (PCR) Negative PCR FLU A (Negative) Influenza Type B (PCR) Negative PCR FLU B (Negative) RSV (PCR) Negative PCR RSV (Negative) Discharge Plan Discharge Clinical Impression: Retained products of conception, Fever, Pelvic pain Patient Disposition: XFER to OR Condition: Stable
[2023-04-25 10:49] LABS: Basophils Percent Auto 0.2 % (0.0-3.0); Eosinophils Percent Auto 0.3 % (0.0-7.0); Hemoglobin* 10.3 gm/dL (12.0-16.0); Immature Granulocytes Pct Auto 0.5 %; Lymphocytes Percent Auto 8.1 % (20-44); Mean Corpuscular HGB Conc 34 gm/dL (32-36); Mean Corpuscular Hemoglobin 32 pg (26-34); Mean Corpuscular Volume 93 fL (80-100); Monocytes Percent Auto 10.6 % (0.0-11.0); Neutrophils Percent Auto 80.3 % (42.0-72.0); Platelet Count* 200 K/uL (140-440); RDW Coefficient of Variation % 12.3 % (11.5-15.5); Red Blood Count 3.23 m/uL (4.00-5.20); White Blood Count* 13.27 K/uL (4.50-11.00)
[2023-04-25] MEDS: ACETAMINOPHEN 500 MG TABLET 1000 MG PO (10:53)
[2023-04-25] MEDS: 0.9 % SODIUM CHLORIDE 1000 ml 1,000 ML IV (10:53)
[2023-04-25 10:56] LABS: Slide Review Reflex No
--- NOTE | 2023-04-25 11:08 | ED.NURSE ---
Pt resting comfortably in room. IV infusing without difficulty. Mother in room with infant and supportive.
[2023-04-25 11:09] LABS: Chloride* 105 mmol/L (96-114); Potassium* 3.5 mmol/L (3.6-5.1); Sodium* 135 mmol/L (135-149)
[2023-04-25 11:11] LABS: Creatinine* 0.7 mg/dL (0.5-1.5); Est. Creatinine Clearance* 128.39; Estimated Glomerular Filt Rate 123 ml/min
[2023-04-25 11:12] LABS: Anion Gap 9 mEq/L (7-15); Blood Urea Nitrogen* 7 mg/dL (5-24); Calcium* 7.8 mg/dL (8.4-10.6); Carbon Dioxide* 21 mmol/L (20-32); Glucose* 87 mg/dL (60-115)
[2023-04-25 11:32] LABS: C Reactive Protein* 12.5 mg/dL (0.5-1.0)
--- NOTE | 2023-04-25 11:36 | CRLHL7_ITS ---
For Patients: As a result of the Century Cures Act, medical imaging exams and procedure reports are released immediately into your electronic medical record. You may view this report before your referring provider. If you have questions, please contact your health care provider. INDICATION: PELVIC PAIN, 5 DAYS COMPARISON: none TECHNIQUE: 2D short scale and color Doppler images were acquired of the pelvis using a transabdominal approach. FINDINGS: uterus is present. No uterine fibroid. Endometrium is thickened and heterogeneous with some vascularity. No adnexal mass or pelvic free fluid. No fluid in the endometrial canal. Endometrium measures 3 centimeters. Ovaries normal. Right ovary measures 3.2 x 1.3 x 1.7 cm. Left ovary measures 3.0 x 1.7 x 2.3 cm. IMPRESSION: Thickened, heterogeneous and mildly vascular endometrium, 5 days , possibly normal but cannot exclude endometritis or retained products. Dictated by Iam Peraza MD @ 04/25/2023 12:29:33 PM (Electronically Signed)
[2023-04-25 11:37] LABS: PCR FLU A Negative PCR FLU A (Negative); PCR FLU B Negative PCR FLU B (Negative); PCR RSV Negative PCR RSV (Negative)
--- NOTE | 2023-04-25 11:38 | ED.NURSE ---
Dr. Pozo aware of the repeat temp of 101.7. Fluids finished. Pt states she is starting to feel hot now. reassured that she is probably breaking her fever.
[2023-04-25 11:39] LABS: SARS PCR* Negative SARS-CoV-2 (Negative)
--- NOTE | 2023-04-25 12:43 | PM.GYNHPPRM ---
BANQUET HOUSEPERSON: H&P: HPI Surgical History of Present Illness Time Seen by Provider: 12:43 Date Seen: 04/25/23 Reason for admission: pelvic pain and other (Retained placenta. Endometritis. ) Last H&P: History & Physical 04/25/23 12:43 Narrative: Rosenda Delaney is a 27 year old female who presented [] [facility] Medical History (Updated 04/25/23 @ 12:08 by Iam Pozo MD) Unstable lie of fetus ?O32.0XX0 - Maternal care for unstable lie, not applicable or unspecified (ICD-10) Routine screening for STI (sexually transmitted infection) ?Z11.3 - Encounter for screening for infections with a predominantly sexual mode of transmission (ICD-10) Surgical History History of tonsillectomy ?Z90.89 - Acquired absence of other organs (ICD-10) [place] teeth extracted ?K08.409 - Partial loss of teeth, unspecified cause, unspecified class (ICD-10) History of ankle surgery ?Z98.890 - Other specified postprocedural states (ICD-10) Family History Family/Other Thyroid cancer Brain cancer Father High blood pressure Social History What is your current living situation?: I presently have a place to live Problems where you live: no known problems In the past 12 months, utilities in danger of being shut off: no In past 12 months, lack of transportation kept you from medical appts, meetings, work, or getting things needed for daily living: no In the past 12 mos, have been you worried that your food would run out before you had money to buy more?: never true In the past 12 mos, the food you bought just didn't last and you didn't have money to buy more?: never true Smoking Status: Never smoker Do you use any of these nicotine containing products: None How often do you have a drink containing alcohol: never How often do you have six or more drinks on one occasion: Never AUDIT-C Alcohol total score: 0 Non-prescribed substance use: denies use How often does anyone, including family, friends and others, physically hurt you: never How often does anyone, including family, friends and others, insult or talk down to you: never How often does anyone, including family, friends and others, threaten you with harm: never How often does anyone, including family, friends and others, scream or curse at you: never Little interest or pleasure in doing things: several days Feeling down, depressed, or hopeless: several days service: No Meds Home Medications and Allergies Home Medications Medication Instructions Recorded Confirmed Type loratadine 10 mg tablet (Claritin) 10 mg PO QDAY 07/30/22 04/20/23 History docosahexaenoic acid 200 mg 200 mg PO DAILY 09/17/22 04/20/23 History capsule ( DHA) Allergies Allergy/AdvReac Type Severity Reaction Status Date / Time cat dander Allergy Verified 04/19/23 18:11 BANQUET HOUSEPERSON - Exam Physical Exam: Vital signs: Temp Pulse Resp BP Pulse Ox O2 Del Method 100.3 F H 93 16 101/62 99 Room Air 04/25/23 12:29 04/25/23 11:37 04/25/23 11:37 04/25/23 09:52 04/25/23 11:37 04/25/23 11:37 BANQUET HOUSEPERSON - Results Labs Labs: Short CBC 04/25/23 Range/Units 10:40 WBC 13.27 H (4.50-11.00) K/uL Hgb 10.3 L (12.0-16.0) gm/dL Hct 30.0 L (33.0-51.0) % Plt Count 200 (140-440) K/uL BMP 04/25/23 10:40 Sodium 135 Potassium 3.5 L Chloride 105 Carbon Dioxide 21 BUN 7 Creatinine 0.7 Glucose 87 Calcium 7.8 L Urine 04/25/23 Range/Units 10:08 Urine Color Yellow (Yellow) Urine Appearance Clear (Clear) Urine pH 7.0 (5.0-8.5) Ur Specific [place] 1.010 (1.000-1.030) Urine Protein Negative (Negative) Urine Glucose (UA) Negative (Negative)
--- NOTE | 2023-04-25 12:57 | PM.GYNCN1 ---
COPY CENTER ASSOCIATE - CN: HPI Data of Consult Time Seen by Provider: 12:57 Date Seen: 04/25/23 Patient: [facility] Patient Consult date: 04/25/23 Primary Care Provider: Not a Local Provider Consult Narrative Reason for consult: other (Endometritis. Possible retained products of conception) Narrative: Rosenda Delaney is a 27 year old female who is PPD#5 and presented to the ED due to two days of chills and fevers since 11 pm last night. She had an overall uncomplicated spontaneous vaginal delivery and was recovering as anticipated until she started having chills that would last for a couple of hours. This happened two days in a row. She decided to take her temperature last night and it showed she was febrile to 101F. She continued to feel awful last night and decided to call clinic this AM. It was recommended she be evaluated in the ED. She has headaches, fatigue and a general feeling of unwellness. She endorses more severe cramping than anticipated. She feel like her body is trying to pass a clot but nothing coming out. She has normal amount of lochia. Does not endorse a malodor with it yet. NPO status: now Patient denies chest pain, SOB, n/v, or dizziness. Otherwise, is going well cc:: CC: Review of Systems Status of ROS: Reports: 6 or more systems reviewed and unremarkable except as noted in History and below [facility] Medical History (Updated 04/25/23 @ 16:55 by Stefani Ferreira MD) Unstable lie of fetus ?O32.0XX0 - Maternal care for unstable lie, not applicable or unspecified (ICD-10) Routine screening for STI (sexually transmitted infection) ?Z11.3 - Encounter for screening for infections with a predominantly sexual mode of transmission (ICD-10) Surgical History History of tonsillectomy ?Z90.89 - Acquired absence of other organs (ICD-10) [place] teeth extracted ?K08.409 - Partial loss of teeth, unspecified cause, unspecified class (ICD-10) History of ankle surgery ?Z98.890 - Other specified postprocedural states (ICD-10) Family History Family/Other Thyroid cancer Brain cancer Father High blood pressure Social History What is your current living situation?: I presently have a place to live Problems where you live: no known problems In the past 12 months, utilities in danger of being shut off: no In past 12 months, lack of transportation kept you from medical appts, meetings, work, or getting things needed for daily living: no In the past 12 mos, have been you worried that your food would run out before you had money to buy more?: never true In the past 12 mos, the food you bought just didn't last and you didn't have money to buy more?: never true Highest level of school completed/degree received: Associate degree: academic program Smoking Status: Never smoker Do you use any of these nicotine containing products: None Second hand tobacco smoke exposure: No How often do you have a drink containing alcohol: monthly or less How often do you have six or more drinks on one occasion: Never AUDIT-C Alcohol total score: 1 Non-prescribed substance use: denies use Caffeine: No How often does anyone, including family, friends and others, physically hurt you: never How often does anyone, including family, friends and others, insult or talk down to you: never How often does anyone, including family, friends and others, threaten you with harm: never How often does anyone, including family, friends and others, scream or curse at you: never Little interest or pleasure in doing things: several days Feeling down, depressed, or hopeless: several days service: No Meds Home Medications and Allergies Home Medications Medication Instructions Recorded Confirmed Type loratadine 10 mg tablet (Claritin) 10 mg PO QDAY 07/30/22 04/20/23 History docosahexaenoic acid 200 mg 200 mg PO DAILY 09/17/22 04/20/23 History capsule ( DHA) Allergies Allergy/AdvReac Type Severity Reaction Status Date / Time cat dander Allergy Verified 04/19/23 18:11 COPY CENTER ASSOCIATE - Exam Physical Exam: Vital signs: Temp Pulse Resp BP Pulse Ox O2 Del Method 100.3 F H 93 16 101/62 99 Room Air 04/25/23 12:29 04/25/23 11:37 04/25/23 11:37 04/25/23 09:52 04/25/23 11:37 04/25/23 11:37 Narrative: Physical exam: General: No acute distress Psych: Alert and oriented x4, full affect HEENT: Normocephalic, atraumatic Lungs: Unlabored breathing. Abdomen: Uterus firm 3cm below the umbilicus. + tender to palpation. No rebound, or distention. Skin: No lesions or rashes Lower extremities: No edema or erythema Pelvic exam: Defer to OR COPY CENTER ASSOCIATE - Results Labs Labs: Short CBC 04/25/23 Range/Units 10:40 WBC 13.27 H (4.50-11.00) K/uL Hgb 10.3 L (12.0-16.0) gm/dL Hct 30.0 L (33.0-51.0) % Plt Count 200 (140-440) K/uL BMP 04/25/23 10:40 Sodium 135 Potassium 3.5 L Chloride 105 Carbon Dioxide 21 BUN 7 Creatinine 0.7 Glucose 87 Calcium 7.8 L Urine 04/25/23 Range/Units 10:08 Urine Color Yellow (Yellow) Urine Appearance Clear (Clear) Urine pH 7.0 (5.0-8.5) Ur Specific [place] 1.010 (1.000-1.030) Urine Protein Negative (Negative) Urine Glucose (UA) Negative (Negative) Assessment and Plan Assessment and plan (1) Endometritis: Status: Acute Plan - PPD#5 with uterine pain and persistent fever - T-max 101.7F at 1137 (04/25) - WBC today: 13.27 - CRP: 12.5 - Hgb/plt: 10.3/200 - UA: negative bateria, LE or nitrite - TVUS: Thickened, heterogenous and mildly vascular endometrium, 5 days , possible normal but cannot exclude endometritis or retained products. - Discussed with patient that she has endometritis due to her fundal tenderness and persistent fever. Patient was counseled on the risks/benefits/alternatives of the proposed treatment: Admission for suction dilation & curettage and broad-spectrum antibiotics for 24 hours afebrile. Given her diagnosis of endometritis and possible concerning features on ultrasound, I do think it would benefit us to do a suction D&C to remove any nidus of infection. Patient agreed with the plan and consent form was signed. - Unfortunately, we do not have IV clindamycin. Patient will be treated with Zosyn Q6H. - She is currently NPO. Will proceed to OR
[2023-04-25] MEDS: PIPERACILLIN/TAZOBACTAM 3.375 GM in 0.9 % SODIUM CHLORIDE Mini-bag 100 ML IVPB ×2 (13:10→18:40)
--- NOTE | 2023-04-25 13:38 | W.PM.GYNPROC ---
Procedure Note Time Seen by Provider: 13:38 Date of procedure: 04/25/23 Pre-op diagnosis: Endometritis and possible retained placenta Post-op diagnosis: same Procedure: 1. Suction dilation and curettage Anesthesia: spinal Complications: None Surgeon: Stefani Ferreira MD Estimated blood loss (mL): 50 IV fluids (mL): 600 Urine Output (mL): 20 Pathology: specimen obtained, sent to pathology (Retained placenta ) Condition: stable Disposition: floor Procedure Description: DILATION AND CURETTAGE PREOPERATIVE DIAGNOSIS: 1. Endometritis 2. Possible retained products of conception POSTOPERATIVE DIAGNOSIS: Same PROCEDURE: 1. EUA 2. Suction dilation and curettage SURGEON: Stefani Ferreira MD MONEY POSITION OFFICER: N/A ANESTHESIA: MAC FINDINGS: 1. A 10 size mobile midline uterus, no adnexal masses on EUA 2. Normal external genitalia. Cervix is 1.5 cm dilated due to recent status 3. Minimal bleeding but malodorous lochia FLUIDS: 600 cc ESTIMATED BLOOD LOSS: 50 cc URINE OUTPUT: 20 cc COMPLICATIONS: None PREOP ANTIBIOTIC: Zosyn SPECIMEN: 1. Retained products INDICATIONS: Rosenda is a 27yo , with diagnosis with endometritis and possible retained products. DESCRIPTION OF PROCEDURE: The patient was taken to the operating room where monitored anesthesia care was administered. She was prepared and draped in normal sterile fashion in the dorsal lithotomy position in yellow fin stirrups, taking care to avoid lower extremity hyperextension, hyperflexion or compression. A surgical time-out was performed with the entire operative staff per protocol. Perioperative antibiotics were given. EUA revealed the above findings. Bladder was drained with a red rubber. A speculum was placed in the patient's vagina and a long Allis was placed on the anterior lip of the cervix. The cervix did not need dilation and accommodated the 9 [place] suction curettage. The suction curettage was then inserted under direct visualization. The uterus was then gently suction curetted and rotated to clear the uterus of products of conception. This was performed until a gritty texture was noted and the uterus was cleared of all remaining products of conception. One pass with a sharp curette was performed. There was minimal bleeding noted after the suction curettage was removed. The long Allis was removed from the anterior lip of the cervix and excellent hemostasis was noted. All instruments were removed. Debrief performed per protocol and specimen reviewed. Specimen was sent to pathology. The patient tolerated the procedure well. Sponge, lap and needle counts were correct x 2. The patient was taken to the recovery room in stable condition.
--- NOTE | 2023-04-25 13:49 | W.ANESCHARGE ---
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
--- NOTE | 2023-04-25 13:51 | ED.NURSE ---
Patient's belongings given to her mother in same day waiting room.
--- NOTE | 2023-04-25 15:26 | PC.NURSE ---
Patient arrived to floor from OR at 1345. VSS and afebrile. Denies any c/o pain. Patient A&O and comfortable. Cooperative with cares and able to make needs known. PIV is SL no continuous fluids. Patient's mother and 5 day old are in the room at bedside- both will be present in the room overnight. Plan to have IV zosyn q6H and discharge home tomorrow, 04/26. Patient tolerating PO intake. No drainage on pad noted.
[2023-04-25] MEDS: ACETAMINOPHEN 325 MG TABLET 650 MG PO ×2 (16:02→21:27)
--- NOTE | 2023-04-25 16:36 | PC.NURSE ---
Dr. Ferreira updated of temp 99.6, rigors. Will schedule Tylenol per .
[2023-04-25] MEDS: IBUPROFEN 600 MG TABLET PO (17:38)
--- NOTE | 2023-04-25 20:07 | PC.NURSE ---
End of shift-- Very pleasant and cooperative, alert and oriented patient. VSS, though somewhat hypotensive and tachycardic and highest temp was 103.1F. Pt was given Tylenol and Motrin and Md was notified regarding VS and temps. Sepsis interventions were reviewed with MD. New order to alternate Tylenol and Motrin obtained. LS CTA. BS+ x4 and pt tolerated a regular diet. was at bedside and pt nurses, cuddles and cares for him appropriately. Minimal pink discharge noted when pt was up to void. Pt ambulated to with SBA and tolerated it well. Report to CARLOS Coleman and all questions were answered.
[2023-04-26] MEDS: IBUPROFEN 600 MG TABLET PO ×4 (00:41→18:39)
[2023-04-26] MEDS: PIPERACILLIN/TAZOBACTAM 3.375 GM in 0.9 % SODIUM CHLORIDE Mini-bag 100 ML IVPB ×4 (00:42→18:38)
[2023-04-26 03:05] VITALS: BP 91/57; PULSE 77; RESP 15; TEMP 36.6; O2SAT 97
[2023-04-26] MEDS: ACETAMINOPHEN 325 MG TABLET 650 MG PO ×3 (04:19→16:17)
[2023-04-26 06:40] LABS: Basophils Absolute Auto 0.01 K/uL (0.00-0.30); Basophils Percent Auto 0.1 % (0.0-3.0); Eosinophils Absolute Auto 0.01 K/uL (0.00-0.50); Eosinophils Percent Auto 0.1 % (0.0-7.0); Hematocrit 27.5 % (33.0-51.0); Hemoglobin* 9.4 gm/dL (12.0-16.0); Immature Granulocytes Abs Auto 0.17 K/uL (0.00-0.30); Immature Granulocytes Pct Auto 1.8 %; Lymphocytes Percent Auto 6.7 % (20-44); Mean Corpuscular HGB Conc 34 gm/dL (32-36); Mean Corpuscular Hemoglobin 32 pg (26-34); Mean Corpuscular Volume 93 fL (80-100); Monocytes Percent Auto 3.9 % (0.0-11.0); Neutrophils Percent Auto 87.4 % (42.0-72.0); Platelet Count* 146 K/uL (140-440); RDW Coefficient of Variation % 12.7 % (11.5-15.5); Red Blood Count 2.96 m/uL (4.00-5.20); White Blood Count* 9.27 K/uL (4.50-11.00)
[2023-04-26 06:51] LABS: Slide Review Reflex No
--- NOTE | 2023-04-26 06:54 | PC.NURSE ---
Alert and oriented x 4. Denies any pain, shortness of breath or chest pain. Small amount of pink tinged vaginal bleeding. Patient BP?s continue to run in 90?s/40?s, per patient reports he normally runs lower at baseline. Denies any dizziness or lightheadedness. Ambulates independently. ?Call received from lab with critical lab values at 2100, call placed to on-call Dr. Ferreira, no new orders. Patient updated on new lab values and no change in current plan.
[2023-04-26 07:00] VITALS: BP 99/60; PULSE 73; RESP 16; TEMP 36.5; O2SAT 97
--- NOTE | 2023-04-26 09:20 | PM.GYNPNPO ---
FOREST PATHOLOGY PROFESSOR - A/P Assessment and plan (1) Endometritis: Status: Acute Assessment and Plan: Appropriate recovery after suction curettage and initiation of antibiotics: Temperature has normalized, heart rate has normalized, white count has normalized. Continue Zosyn until 7:00 p.m. tonight. Anticipate discharge at that time if she has no recurrence of fever. (2) Anemia: Status: Acute Assessment and Plan: Begin ferrous sulfate every other day Postoperative Procedures: Procedures Operation Date: 04/25/23 12:40 Actual Procedure Side Surgeon p Suction Dilatation & Curettage Not Applicable Stefani Becky Ferreira MD Time Spent With Patient Time: Total time spent is greater than 50% in coordination of care (as documented) at patient's floor/unit and/or counseling patient: Time with patient: less than 15 minutes FOREST PATHOLOGY PROFESSOR- PN:Subj Post-Op Subjective Date Seen: 04/26/23 Post Operative Details: Post-operative day number 1: status post suction uterine curettage for suspected retained products after Rosenda is feeling much better. Pain has resolved. Bleeding is scant. She is without difficulty. She had her first dose of Zosyn at 1840 yesterday. FOREST PATHOLOGY PROFESSOR-PN: Obj Exam Physical Exam: Vital signs: Temp Pulse Resp BP Pulse Ox O2 Del Method 97.8 F 77 15 91/57 L 97 Room Air 04/26/23 03:05 04/26/23 03:05 04/26/23 03:05 04/26/23 03:05 04/26/23 03:05 04/26/23 03:05 Last temperature elevation was 100.8 at 6:30 p.m. on 04/25/23 Narrative: General: Pleasant, no acute distress Heart: Regular rate and rhythm, no murmur or gallop Lungs: Clear to auscultation bilaterally Abdomen: Soft, nontender, fundus well below umbilicus, normoactive bowel sounds FOREST PATHOLOGY PROFESSOR - PN: Obj Data Labs Labs: Laboratory Results - last 24 hr 04/25/23 04/25/23 04/26/23 10:08 10:40 06:06 WBC 13.27 H 9.27 RBC 3.23 L 2.96 L Hgb 10.3 L 9.4 L Hct 30.0 L 27.5 L MCV 93 93 MCH 32 32 MCHC 34 34 RDW Coeff of [place] 12.3 12.7 Plt Count 200 146 Neut % (Auto) 80.3 H 87.4 H Lymph % (Auto) 8.1 L 6.7 L [place] % (Auto) 10.6 3.9 Eos % (Auto) 0.3 0.1 Baso % (Auto) 0.2 0.1 Neut # (Auto) 10.70 H 8.10 H Lymph # (Auto) 1.10 0.60 L [place] # (Auto) 1.40 H 0.40 Eos # (Auto) 0.00 0.01 Baso # (Auto) 0.00 0.01 Abs Immat Gran (auto) 0.10 0.17 Imm/Tot Granulo (auto) 0.5 1.8 Sodium 135 Potassium 3.5 L Chloride 105 Carbon Dioxide 21 Anion Gap 9 BUN 7 Creatinine 0.7 Estimated Creat Clear 128.39 Estimated GFR 123 Glucose 87 Calcium 7.8 L C-Reactive Protein 12.5 H Urine Color Yellow Urine Appearance Clear Urine pH 7.0 Ur Specific [place] 1.010 Urine Protein Negative Urine Glucose (UA) Negative Urine Ketones 1+ A Urine Blood Trace-intact A Urine Nitrite Negative Urine Bilirubin Negative Urine Urobilinogen 4.0 A Ur Leukocyte Esterase Negative Urine RBC 2-5 A Urine WBC 2-5 Urine WBC Clumps None Ur Squamous Epith Cells None Urine Bacteria None SARS-CoV-2 (PCR) Negative SARS-CoV-2 Influenza Type A (PCR) Negative PCR FLU A Influenza Type B (PCR) Negative PCR FLU B RSV (PCR) Negative PCR RSV
--- NOTE | 2023-04-26 09:30 | PM.GYNDS1 ---
DS: Providers Provider Date Seen: 04/26/23 Primary care physician: Not a Local Provider Attending Physician on discharge: Nalini Cody MD Date of Discharge: 04/26/23 DS: Diagnosis Discharge Diagnosis (1) Endometritis: Status: Acute (2) Anemia: Status: Acute (3) Hx of dilation and curettage: Status: Acute INPATIENT PHARMACIST-Discharge Summary Hospital Course Hospital Course Narrative: Patient is a 27 year old admitted on 04/25/23 for fever and pelvic pain, presumed endometritis. On day of admission, she is day 5 status post normal spontaneous vaginal delivery. Indication for surgery: Suspected retained products of conception. Intraoperative findings were notable for: 1. A 10 size mobile midline uterus, no adnexal masses on EUA 2. Normal external genitalia. Cervix is 1.5 cm dilated due to recent status 3. Minimal bleeding but malodorous lochia. She had an uncomplicated surgery. Postoperative course has been uneventful. Last elevated temperature was 100.7 at 1830 on 04/25/23. Zosyn was started at 1840 on 04/25/23. Since that time, she has remained afebrile. Today, on postoperative day 1, she reports the pain is well controlled. Bleeding is within normal ranges. She is feeling well. Time Spent with Patient Time attestation: Total time spent providing and/or coordinating discharge services: Time spent: Less than 30 minutes INPATIENT PHARMACIST - Exam Physical Exam: Vital signs: Temp Pulse Resp BP Pulse Ox O2 Del Method 97.8 F 77 15 91/57 L 97 Room Air 04/26/23 03:05 04/26/23 03:05 04/26/23 03:05 04/26/23 03:05 04/26/23 03:05 04/26/23 03:05 Narrative: see progress note INPATIENT PHARMACIST - DS: Data Data Completed and Pending Labs on day of discharge: Labs from last 24 hours 04/26/23 04/25/23 04/25/23 06:06 10:40 10:08 WBC 9.27 13.27 H RBC 2.96 L 3.23 L Hgb 9.4 L 10.3 L Hct 27.5 L 30.0 L MCV 93 93 MCH 32 32 MCHC 34 34 RDW Coeff of [place] 12.7 12.3 Plt Count 146 200 Neut % (Auto) 87.4 H 80.3 H Lymph % (Auto) 6.7 L 8.1 L [place] % (Auto) 3.9 10.6 Eos % (Auto) 0.1 0.3 Baso % (Auto) 0.1 0.2 Neut # (Auto) 8.10 H 10.70 H Lymph # (Auto) 0.60 L 1.10 [place] # (Auto) 0.40 1.40 H Eos # (Auto) 0.01 0.00 Baso # (Auto) 0.01 0.00 Abs Immat Gran (auto) 0.17 0.10 Imm/Tot Granulo (auto) 1.8 0.5 Sodium 135 Potassium 3.5 L Chloride 105 Carbon Dioxide 21 Anion Gap 9 BUN 7 Creatinine 0.7 Estimated Creat Clear 128.39 Estimated GFR 123 Glucose 87 Calcium 7.8 L C-Reactive Protein 12.5 H Urine Color Yellow Urine Appearance Clear Urine pH 7.0 Ur Specific [place] 1.010 Urine Protein Negative Urine Glucose (UA) Negative Urine Ketones 1+ A Urine Blood Trace-intact A Urine Nitrite Negative Urine Bilirubin Negative Urine Urobilinogen 4.0 A Ur Leukocyte Esterase Negative Urine RBC 2-5 A Urine WBC 2-5 Urine WBC Clumps None Ur Squamous Epith Cells None Urine Bacteria None SARS-CoV-2 (PCR) Negative SARS-CoV-2 Influenza Type A (PCR) Negative PCR FLU A Influenza Type B (PCR) Negative PCR FLU B RSV (PCR) Negative PCR RSV Preliminary micro results at discharge 04/25/23 10:42 Blood Culture - Preliminary Blood Gram positive cocci in chains 04/25/23 10:40 Blood Culture - Preliminary Blood Gram positive cocci in chains Procedures Procedures: Procedures Operation Date: 04/25/23 12:40 Actual Procedure Side Surgeon p Suction Dilatation & Curettage Not Applicable Stefani B MD Jhon Discharge Plan Discharge Disposition: Home, Self-Care Discharging Surgeon: Nalini Cody Follow-Up Appointment: 1 week with obstetrics service Prescriptions: No Action loratadine [Claritin] 10 mg tablet 10 mg PO QDAY sertraline [Zoloft] 50 mg tablet 50 mg PO QDAY Qty: 90 3RF DHA 200 mg capsule 200 mg PO DAILY docusate sodium 100 mg Capsule 100 mg PO BID PRNQty: 100 0RF Rx Instructions: Take 1 cap 1-2 times a day as needed for constipation ibuprofen 600 mg Tablet 600 mg PO Q6H PRNQty: 60 0RF ferrous sulfate 325 mg (65 mg iron) tablet 325 mg PO Q OTHER DAY Qty: 21 0RF Activity Detail: Nothing per vagina for 6 weeks Discharge Diet: Regular Patient Instructions: Dilation and Curettage (DC) Forms: Work/School Release Follow-up: Nalini Cody MD [Staff Physician] - Provider,Not a Local [Primary Care Provider] - Discharge Orders: Discharge Order (Routine); Ordered 04/26/23 Ordered By: Nalini Cody
[2023-04-26] MEDS: FERROUS SULFATE 325 MG TABLET 650 MG PO (10:53)
[2023-04-26 11:00] VITALS: BP 93/57; PULSE 83; RESP 16; TEMP 36.9; O2SAT 99
[2023-04-26 15:00] VITALS: BP 96/61; PULSE 7; PULSE 75; RESP 16; TEMP 36.7; O2SAT 98
--- NOTE | 2023-04-26 19:19 | PC.NURSE ---
End of shift: Alert and oriented, voiding and tolerating a reg diet. Afebrile this shift. VSS. IV antibiotics administered x2. Denies, N/V/SOB and rates pain 0/10.
--- NOTE | 2023-04-26 20:02 | PC.NURSE ---
Patient discharged from unit at 1940, accompanied by mother who will transport. All DC paperwork reviewed, no questions at this time. IV catheter discontinued intact. Ambulated off unit per patient request.
== END 2023-04-26 19:41 | disposition home or self-care (01) | DRG 769 ==
LOC: ED 12:12 → SS 13:10 → MEDSURG 14:02
PROVIDERS: Admitting Provider Obstetrics & Gynecology; Emergency Provider Family Medicine; Visit Provider Obstetrics & Gynecology
PROC: 10D17ZZ Extraction of Products of Conception, Retained, Via Natural or Artificial Opening (ICD-10-PCS; principal; 2023-04-25 12:30)
DX: O86.12 Endometritis following delivery (principal); O73.0 Retained placenta without hemorrhage; O90.81 Anemia of the puerperium
CPT/HCPCS: 01965; 36415; 76856; 80048; 81001; 81003; 81015; 85025; 86140; 87040; 87186; 87631; 88305; 99140; 99284; A9270; J0330; J2543; J2704; J3010; J7030

== ENCOUNTER 2023-04-28 11:15 | Outpatient (CLI) | payer OTHER, SELFPAY | END 2023-04-28 11:16 | disposition home or self-care (01) | PROVIDERS: Visit Provider Obstetrics & Gynecology | DX: N71.9 Inflammatory disease of uterus, unspecified (principal); R78.81 Bacteremia | CPT/HCPCS: 87040 ==

== ENCOUNTER 2024-10-12 09:21 | Outpatient (CLI) | payer BC, SELFPAY | END 2024-10-12 09:22 | disposition home or self-care (01) | PROVIDERS: PCP Family Medicine; Visit Provider Family Medicine | DX: F41.8 Other specified anxiety disorders (principal); R53.83 Other fatigue | CPT/HCPCS: 84439; 84443 ==